=== PATIENT | female | born 1975 | race Hispanic/Latino ===

== ENCOUNTER 2017-06-22 08:47 | Emergency (ER) | payer MEDICAID | END 2017-06-22 09:27 | disposition home or self-care (01) | LOC: EDH 08:47 | DX: J06.9 Acute upper respiratory infection, unspecified (principal); Z90.49 Acquired absence of other specified parts of digestive tract; Z98.890 Other specified postprocedural states | CPT/HCPCS: 99281 ==

== ENCOUNTER 2019-01-26 18:08 | Emergency (ER) | payer MEDICAID ==
[2019-01-26] MEDS ORDERED: SODIUM CHLORIDE 0.9% 1000ML 1,000 ML IV ONE (18:55)
[2019-01-26 18:56] LABS: APPEARANCE,URINE Cloudy (CLEAR); BILIRUBIN,URINE Negative (NEGATIVE); COLOR,URINE Yellow (YELLOW); GLUCOSE, URINE (UA) Negative (NEGATIVE); KETONES,URINE Trace mg/dL (NEGATIVE); LEUKOCYTE ESTERASE ,URINE Negative (NEGATIVE); NITRATE,URINE Negative (NEGATIVE); OCCULT BLOOD,URINE Negative (NEGATIVE); PH,URINE 5.5 (5.0-8.0); PROTEIN,URINE Negative (NEGATIVE)
[2019-01-26 19:01] LABS: BASOPHILS % (AUTO) 0.5 % (0.0-5.0); EOSINOPHILS % (AUTO) 4.9 % (0.0-8.0); HEMATOCRIT 37.4 % (36-48); LYMPHOCYTES % (AUTO) 17.3 % (21.0-51.0); MEAN CORPUSCULAR HEMOGLOBIN 28.3 pg (27.0-33.0); MEAN CORPUSCULAR HGB CONC 33.1 g/dL (32.0-36.0); MEAN CORPUSCULAR VOLUME 85.5 fL (79-99); MONOCYTES % (AUTO) 10.1 % (3.0-13.0); NEUTROPHILS % (AUTO) 67.2 % (40.0-77.0); NUCLEATED RED BLOOD CELLS 0.1 % (0.0-0.19); PLATELET COUNT (AUTO) 174 K/uL (130-400); RED BLOOD CELL COUNT(AUTO) 4.38 MIL/uL (4.00-5.50); RED CELL DISTRIBUTION WIDTH 14.6 % (11.0-15.5); WHITE BLOOD COUNT (AUTO) 4.5 K/uL (4.8-10.8)
[2019-01-26 19:11] LABS: CREATININE 0.5 mg/dL (0.5-1.5); POTASSIUM 3.9 mmol/L (3.5-5.1)
[2019-01-26 19:15] LABS: ALBUMIN 3.3 g/dL (3.5-5.0); BILIRUBIN,TOTAL 0.2 mg/dL (0.2-1.0); TOTAL PROTEIN, SERUM 7.3 g/dL (6.0-8.3)
[2019-01-26] MEDS ORDERED: IOHEXOL-350 75 ML VIAL IV ONE (19:16)
[2019-01-26 19:21] LABS: BACTERIA,URINE Few /HPF (None Seen); CALCIUM OXALATE CRYSTALS,UR Moderate /LPF (None Seen); MUCUS,URINE Few LPF (None Seen); SQUAMOUS EPITHELIAL CELL,UR 0-2 /HPF (0-2)
[2019-01-26 19:38] LABS: INR 1.03 (0.85-1.15); PARTIAL THROMBOPLASTIN TIME 27.5 SEC (26.3-35.5); PROTHROMBIN TIME 10.8 SEC (9.6-11.6)
[2019-01-26] MEDS ORDERED: DICYCLOMINE HCL 10 MG/ML 2ML AMP IM ONE (20:23)
[2019-01-26] MEDS ORDERED: ONDANSETRON HCL 4 MG/2 ML VIAL ONE (20:23)
== END 2019-01-26 21:12 | disposition home or self-care (01) ==
LOC: EDH 18:08
DX: K52.9 Noninfective gastroenteritis and colitis, unspecified (principal); Z98.890 Other specified postprocedural states
CPT/HCPCS: 36415; 74177; 80053; 81001; 81025; 83690; 85025; 85610; 85730; 96361; 96372; 96374; 99285; J0500; J2405; J7030; Q9967; 96365

== ENCOUNTER 2023-04-10 00:37 | Emergency (ER) | payer BC, MEDICAID, OTHER ==
[~2023-04-10] VITALS: Ht 157.5 cm; Wt 95.3 kg
[2023-04-10] MEDS ORDERED: UNASYN 3GM VIAL IV STA (01:09)
[2023-04-10] MEDS: MORPHINE 2 MG SYG IVP ONE (01:38)
[2023-04-10] MEDS: ONDANSETRON 4MG INJ IVP ONE (01:38)
[2023-04-10] MEDS: CEFTRIAXONE 1G VIAL IVPB ONE (01:40)
[2023-04-10] MEDS ORDERED: AMOX1TAB16 PO (02:07)
[2023-04-10] MEDS ORDERED: IBUP-2071 PO (02:07)
[2023-04-10 02:09] VITALS: BP 129/64; PULSE 81; RESP 18; O2SAT 100
[2023-04-10] MEDS: CEFTRIAXONE 1G VIAL ONE (02:11)
[2023-04-10] MEDS: ONDANSETRON 4MG INJ ONE (02:16)
== END 2023-04-10 02:16 | disposition home or self-care (01) ==
LOC: EDH 00:37
DX: K04.7 Periapical abscess without sinus (principal)
CPT/HCPCS: 99284; 96365; 96375; J2270; J0696; J2405

== ENCOUNTER 2023-06-03 09:07 | Emergency (ER) | payer OTHER, BC ==
[~2023-06-03] VITALS: Ht 157.5 cm; Wt 97.5 kg
[~2023-06-03 09:07] MED LIST: AMOX1TAB16 PO; IBUP-2071 PO
[2023-06-03 09:09] VITALS: BP 120/76; PULSE 91; RESP 14
[2023-06-03] MEDS ORDERED: IBUP-2077 PO (10:00)
[2023-06-03] MEDS ORDERED: CYCL-309 PO (10:00)
[2023-06-03] MEDS: CYCLOBENZAPRINE HCL 10 MG TABLET PO ONE (10:30)
[2023-06-03] MEDS: IBUPROFEN 800 MG TAB PO ONE (10:30)
== END 2023-06-03 11:13 | disposition home or self-care (01) ==
LOC: EDH 09:07
DX: M79.642 Pain in left hand (principal); S30.0XXA Contusion of lower back and pelvis, initial encounter; R20.2 Paresthesia of skin; Z79.899 Other long term (current) drug therapy; Z98.890 Other specified postprocedural states; V89.2XXA Person injured in unspecified motor-vehicle accident, traffic, initial encounter; Y93.I9 Activity, other involving external motion; Y92.488 Other paved roadways as the place of occurrence of the external cause; Y99.8 Other external cause status
CPT/HCPCS: 72170